=== PATIENT | female | born 1935 | race Caucasian/White ===

== ENCOUNTER 2019-10-04 08:39 | Observation (INO) | payer MEDICARE, SELFPAY ==
[2019-10-04] VITALS (15 sets, daily range): BP systolic 131–172; BP diastolic 49–65; PULSE 77–96; RESP 13–22; TEMP 36.1–37.1; O2SAT 98–100; BMI 26.2
--- NOTE | 2019-10-04 08:55 | ECG_ITS ---
Measurements Intervals [place] Rate: 87 P: 50 [place]: 161 QRS: -4 QRSD: 146 T: 128 QT: 369 QTc: 445 Interpretive Statements SINUS RHYTHM LEFT BUNDLE BRANCH BLOCK BASELINE ARTIFACT- III ABNORMAL ECG Electronically Signed On 10-04-2019 10:12:22 CDT by Maksim Covington D.O.
--- NOTE | 2019-10-04 08:56 | ED.RECABL ---
HPI - Recheck/Abnormal Lab/Rx General Chief Complaint: Recheck/Abnormal Lab/Rx Stated Complaint: Needs Blood Transfusion Time Seen by Provider: 10/04/19 08:47 Source: patient Mode of arrival: ambulatory Limitations: no limitations History of Present Illness HPI narrative: This patient is an 84 year old female with history of anemia and hypertension who presents for evaluation of low hemoglobin. Patient reports she had routine labs performed yesterday and she was called by her PCP this morning. She was told to come to ER for a low hemoglobin. On review of labs done yesterday her hemoglobin was 5.6 yesterday. She denies nausea, vomiting, melena, epistaxis, or blood in her stools She states many years ago she was told she was severely anemia. She is not sure if she takes iron supplements. She denies chest pain. She states she is short of breath for many years and it is because she is 84 years old. She also reports she has fatigue but it is also because she is 84 years old. Her hemoglobin was 9.1 in September 2018. complaint: abnormal lab Related Data Allergies Allergy/AdvReac Type Severity Reaction Status Date / Time No Known Allergies Allergy Unverified 10/03/19 10:30 Review of Systems Review of Systems: All systems reviewed & are unremarkable except as noted in HPI and below Constitutional: Constitutional: Reports fatigue ENT: Denies epistaxis Cardiovascular: Cardiovascular: Denies chest pain Respiratory: Respiratory: Reports dyspnea Gastrointestinal: Gastrointestinal: Denies abdominal pain, Denies nausea and Denies vomiting PMFSH Past Medical History Medical History Anemia Hypertension Surgical History Surgical History History of D&C History of eye surgery Family History Family History Father Hypertension Family history of lung cancer Mother Hypertension Family history of lung cancer Sibling Patient's sister is in good health Social History Social History Smoking packs per day: 0.5 Smoking cigarettes per day: 10.0 Years smoked: 20 Smoking pack-years: 10.00 Smoking status: Former smoker Tobacco type: cigarettes Second hand tobacco smoke exposure: No Smoking end date: 02/08/93 Alcohol intake: current Drinks per week: 7 Substance use: never Substance use type: prescription drug Gender identity (if verbalized by the patient): Female Spiritual care concerns: No Exam Const: General: no acute distress and alert Orientation/consciousness: patient oriented x3 Chest: Chest palpation & inspection: normal inspection of the chest Resp: Effort & Inspection: normal respiratory effort and no retractions Auscultation: clear to auscultation bilaterally Cardio: Rate: regular rate Rhythm: regular rhythm Heart sounds: Murmur heart sound present systolic at the right sternal border GI: GI Palp: Yes Soft to palpation and No Tenderness to palpation present (GI) Auscultation: normal bowel sounds Back/Spine/Pelvis: Back: no CVA tenderness Skin: General skin exam: pallor Neuro: General: patient oriented x3 and moves all extremities Course Consultations Consultation #1: I Discussed case with Dr. Bassett who accepts patient for evaluation of anemia. She is stable . Date: 10/04/19 Time: 10:43 Vital Signs Vital signs: Vital Signs Temperature 98.1 F 10/04/19 08:44 Pulse Rate 96 10/04/19 08:44 Respiratory Rate 17 10/04/19 08:44 Blood Pressure 172/62 H 10/04/19 08:44 Pulse Oximetry 100 10/04/19 08:44 Temperature 97.7 F 10/04/19 18:05 Pulse Rate 80 10/04/19 18:05 Respiratory Rate 16 10/04/19 18:05 Blood Pressure 133/52 L 10/04/19 18:05 Pulse Oximetry 99 10/04/19 18:05 MDM - Recheck/Abno
[2019-10-04 09:07] LABS: Basophils Absolute Auto 0.1 K/mm3 (0.0-0.1); Basophils Percent Auto 1.4 % (0.2-1.2); Eosinophils Absolute Auto 0.4 K/mm3 (0-0.3); Eosinophils Percent Auto 5.8 % (0-4.4); Hematocrit 22.7 % (37.0-47.0); Immature Granulocyte Absolute 0.02 K/mm3 (0.00-0.031); Immature Granulocyte Percent A 0.3 % (0-0.5); Lymphocytes Absolute Auto 2.26 K/mm3 (0.9-3.2); Mean Corpuscular HGB Conc 27.8 g/dl (32-36); Mean Corpuscular Hemoglobin 17.9 pg (26-34); Mean Corpuscular Volume 64.5 fl (80-100); Mean Platelet Volume 9.3 fl (7.4-10.4); Monocytes Absolute Auto 0.6 K/mm3 (0.1-0.6); Monocytes Percent Auto 8.2 % (2.6-8.5); Neutrophils Absolute Auto 3.7 K/mm3 (1.3-6.7); Neutrophils Percent Auto 52.3 % (45.5-73.1); Platelet Count Result 453 k/mm3 (150-375); Red Blood Count 3.52 M/mm3 (4.2-5.4); Red Cell Distribution Width 19.4 % (11.5-14.5); White Blood Count 7.1 K/mm3 (4.5-10.0)
[2019-10-04 09:16] LABS: Hemoglobin 6.3 g/dL (12.0-15.0)
[2019-10-04 09:18] LABS: Anisocytosis 1+ (NORMAL); Hypochromasia 2+ (NORMAL); Ovalocytes 1+ (NORMAL); Platelet Estimate Adequate (Adequate); Poikilocytosis 1+ (NORMAL); Target Cells 1+ (NORMAL)
[2019-10-04 09:20] LABS: Alanine Aminotransferase 14 U/L (4-35); Albumin Level 4.4 g/dL (3.5-5.1); Alkaline Phosphatase 57 U/L (38-126); Anion Gap 12 mmol/L (8-16); Aspartate Amino Transferase 27 U/L (14-36); Bilirubin,Total 0.1 mg/dL (0.2-1.3); Blood Urea Nitrogen 18 mg/dL (7-17); Calcium 9.4 mg/dL (8.4-10.2); Carbon Dioxide 23 mmol/L (22-30); Chloride 104 mmol/L (98-107); Estimated CRCL calculation 22 ml/min; Estimated Glomerular Filt Rate 33; Glucose 125 mg/dL (65-105); Potassium 4.2 mmol/L (3.4-5.0); Sodium 139 mmol/L (137-145)
[2019-10-04 09:21] LABS: Prothrombin Time 13.1 Seconds (11.1-14.7)
[2019-10-04 09:22] LABS: Partial Thromboplastin Time 26.9 SECONDS (22.3-36.8)
[2019-10-04 10:03] LABS: Iron 20 ug/dL (37-170)
[2019-10-04 10:11] LABS: Percent Iron Saturation 4 % (20-50)
[2019-10-04 10:26] LABS: Folic Acid 10.9 ng/mL (2.76->20)
[2019-10-04] MEDS: SODIUM CHLORIDE 0.9% IV 250 ML 30 ML IV CONT (11:36)
[2019-10-04] MEDS: TUBING, BLOOD PLUM PUMP TUBING 1 EACH XX (11:36)
--- NOTE | 2019-10-04 12:47 | PC.NURSE ---
This patient, Yasmin Powell, was admitted to 3 [facility] Room 305-01. Patient/family oriented to hospital policies and general routines including ID bracelet, bed and alarms, visiting hours, pain management, procedures, bathroom and other care routines, personal items, smoking policy, room service/diet, and visiting hours. Valuables list has been completed. Information on how to activate the Rapid Response Team has been discussed. Patient/Family are encouraged to report perceived risks to care and to ask questions if they do not understand what they are told or what they should do.
--- NOTE | 2019-10-04 17:15 | PM.IMHP ---
H&P: HPI History of Present Illness Date/Time: 10/04/19 17:15 Chief complaint: severe anemia Narrative: Yasmin Powell is a 84 year old female very pleasant lady, usually well and in good health went to see her PCP and had labs run which showed she was anemic hb at 6. Pt is crossmatched and transfused blood. etiology unknown ?iron studies or b12 deficiency. Pt denies any blood loss. pt does use Aspirin and has a history of CKD and iron deficiency anaemia. Pt wants to go home I am still awaiting her iron panel. and B12 levels. Review of Systems Review of Systems: ROS unobtainable: Yes other (pale and tired ) [facility] Past Medical History Medical History Anemia Hypertension Surgical History Surgical History History of D&C History of eye surgery Family History Family History Father Hypertension Family history of lung cancer Mother Hypertension Family history of lung cancer Sibling Patient's sister is in good health Social History Social History Smoking packs per day: 0.5 Smoking cigarettes per day: 10.0 Years smoked: 20 Smoking pack-years: 10.00 Smoking status: Former smoker Tobacco type: cigarettes Second hand tobacco smoke exposure: No Smoking end date: 02/08/93 Alcohol intake: current Drinks per week: 7 Substance use: never Substance use type: prescription drug Gender identity (if verbalized by the patient): Female Spiritual care concerns: No Meds Home Medications and Allergies Home Medications Medication Instructions Recorded Confirmed Type losartan 100 mg tablet 100 mg PO DAILY #90 tablet 08/07/19 10/04/19 Rx ferrous sulfate 325 mg PO DAILY #60 tablet 10/05/19 Rx vitamin B complex [B 1 tablet PO DAILY #60 tablet 10/05/19 Rx Complex-Vitamin B12] Allergies Allergy/AdvReac Type Severity Reaction Status Date / Time No Known Allergies Allergy Unverified 10/03/19 10:30 Vital Signs Vital Signs - 24 hr 10/04/19 08:44 10/04/19 10:15 10/04/19 11:33 Temperature 36.7 C 37.1 C Pulse Rate 96 82 84 Respiratory Rate 17 22 H 14 Blood Pressure 172/62 H 159/60 H 143/65 H Pulse Oximetry 100 99 100 10/04/19 11:35 10/04/19 11:49 10/04/19 13:15 Temperature 37.1 C 36.9 C 36.4 C L Pulse Rate 83 80 84 Respiratory Rate 13 19 16 Blood Pressure 143/65 H 154/65 H 149/56 H Pulse Oximetry 100 100 100 10/04/19 13:49 10/04/19 14:00 10/04/19 14:49 Temperature 36.1 C L 36.6 C 36.3 C L Pulse Rate 86 81 77 Respiratory Rate 16 18 16 Blood Pressure 135/51 L 149/60 H 131/49 L Pulse Oximetry 100 98 99 10/04/19 15:03 10/04/19 15:18 10/04/19 16:18 Temperature 36.3 C L 36.2 C L 36.6 C Pulse Rate 77 79 79 Respiratory Rate 16 16 16 Blood Pressure 131/49 L 138/50 L 141/50 H Pulse Oximetry 99 98 99 Exam Const: General: tired appearing and other (pale ) HENMT: Head: normocephalic Eyes: General: appearance normal, both eyes and all related structures Pupils: Equal, round and reactive pupils present Neck: Neck: supple Chest: Chest palpation & inspection: normal inspection of the chest Resp: Effort & Inspection: normal respiratory effort Auscultation: clear to auscultation bilaterally Cardio: Jugular venous distension: no JVD Rhythm: regular rhythm Heart sounds: S1 normal heart sound present and S2 normal heart sound present GI: Inspection: normal to inspection GI Palp: No abdominal tenderness, Yes Soft to palpation and No Tenderness to palpation present (GI) Auscultation: normal bowel sounds : General: Yes no CVA tenderness Back/Spine/Pelvis: Back: no CVA tenderness Skin: General skin exam: normal color and dry skin Neuro: Cranial nerves: Yes CN's II-XII intact bilaterally and Yes Equal, round and reactive pupils present
[2019-10-05 06:00] VITALS: BP 118/74; PULSE 72; RESP 16; TEMP 36.6; O2SAT 97
[2019-10-05 06:30] LABS: Basophils Absolute Auto 0.1 K/mm3 (0.0-0.1); Basophils Percent Auto 1.4 % (0.2-1.2); Eosinophils Absolute Auto 0.2 K/mm3 (0-0.3); Eosinophils Percent Auto 3.1 % (0-4.4); Hematocrit 29.4 % (37.0-47.0); Hemoglobin 8.9 g/dL (12.0-15.0); Immature Granulocyte Absolute 0.02 K/mm3 (0.00-0.031); Immature Granulocyte Percent A 0.3 % (0-0.5); Lymphocytes Absolute Auto 1.09 K/mm3 (0.9-3.2); Lymphocytes Percent Auto 16.9 % (18.3-44.2); Mean Corpuscular HGB Conc 30.3 g/dl (32-36); Mean Corpuscular Hemoglobin 21.8 pg (26-34); Mean Corpuscular Volume 71.9 fl (80-100); Monocytes Absolute Auto 0.6 K/mm3 (0.1-0.6); Monocytes Percent Auto 8.8 % (2.6-8.5); Neutrophils Absolute Auto 4.5 K/mm3 (1.3-6.7); Neutrophils Percent Auto 69.5 % (45.5-73.1); Platelet Count Result 311 k/mm3 (150-375); Red Blood Count 4.09 M/mm3 (4.2-5.4); Red Cell Distribution Width 25.3 % (11.5-14.5); White Blood Count 6.5 K/mm3 (4.5-10.0)
[2019-10-05 06:58] LABS: Alanine Aminotransferase 10 U/L (4-35); Albumin Level 3.7 g/dL (3.5-5.1); Alkaline Phosphatase 51 U/L (38-126); Anion Gap 7 mmol/L (8-16); Aspartate Amino Transferase 24 U/L (14-36); Bilirubin,Total 0.6 mg/dL (0.2-1.3); Blood Urea Nitrogen 16 mg/dL (7-17); Calcium 8.8 mg/dL (8.4-10.2); Carbon Dioxide 25 mmol/L (22-30); Chloride 108 mmol/L (98-107); Estimated CRCL calculation 27 ml/min; Estimated Glomerular Filt Rate 43; Glucose 98 mg/dL (65-105); Potassium 4.1 mmol/L (3.4-5.0); Sodium 140 mmol/L (137-145)
[2019-10-05] MEDS: LOSARTAN POTASSIUM 100 MG TABLET PO (08:44)
--- NOTE | 2019-10-06 15:48 | PM.DS ---
DS: Admitting Diagnosis Admitting Diagnosis Admitting Diagnosis: DATE OF DISCHARGE 10/05/2019 Severe anemia DS: Discharge Diagnosis Discharge Diagnosis (1) Anemia: Code(s): D64.9 - Anemia, unspecified Status: Acute Assessment and Plan: Pt transfused blood iron panel shows iron deficiency anaemia, ferrous sulphate and B12 given on discharge. Pt can follow will hematology if she wishes or her PCP. Pt was not able to provide a FOBT. Pt states she has had a colonoscopy roughly 40 years ago, which was NL. (2) Chronic kidney disease: Code(s): N18.9 - Chronic kidney disease, unspecified Status: Acute Assessment and Plan: Creat is 1.2 on admission which is pts baseline level. (3) Hypertension: Code(s): I10 - Essential (primary) hypertension Status: Acute Assessment and Plan: BP 133/52 stable, pt home medications were continued. DS: Summary Time Spent with Patient Time attestation: Total time spent providing and/or coordinating discharge services: 20 minutes on day of dischrage Exam Const: General: tired appearing and other (pale ) HENMT: Head: normocephalic Eyes: General: appearance normal, both eyes and all related structures Pupils: Equal, round and reactive pupils present Neck: Neck: supple Chest: Chest palpation & inspection: normal inspection of the chest Resp: Effort & Inspection: normal respiratory effort Auscultation: clear to auscultation bilaterally Cardio: Jugular venous distension: no JVD Rhythm: regular rhythm Heart sounds: S1 normal heart sound present and S2 normal heart sound present GI: Inspection: normal to inspection Auscultation: normal bowel sounds : General: Yes no CVA tenderness Back/Spine/Pelvis: Back: no CVA tenderness Skin: General skin exam: normal color and dry skin Neuro: Cranial nerves: Yes CN's II-XII intact bilaterally and Yes Equal, round and reactive pupils present Cognition (Neuro): normal cognition Speech: normal speech Motor exam (neuro): 5/5 motor strength present throughout Extrem: General: normal to inspection Psych: Appearance: grossly normal Mental Status: mental status grossly normal Discharge Plan Discharge Attending physician on discharge: Danuta Bassett Consulting providers: Erick Lakhani Discharging Clinician: Danuta Bassett Anticipated Discharge Date/Time: 10/05/19 11:02 Patient Disposition: Home, Self-Care Activity: as tolerated Diet: heart healthy Patient Instructions: Antibiotic Form Stand Alone Forms: General Discharge Information Follow-up/Referrals: Javier Lees MD [Primary Care Provider] - (in 2 -3 weeks time for folow up cbc ) Discharge Medications: New ferrous sulfate 325 mg (65 mg iron) tablet 325 mg PO DAILY Qty: 60 RF: 0 vitamin B complex [B Complex-Vitamin B12] Tablet 1 tablet PO DAILY Qty: 60 RF: 0 Continued losartan 100 mg tablet 100 mg PO DAILY Qty: 90 RF: 1 Date of admission: 10/04/19 10:44 Primary Care Provider: Javier Lees Admitting Provider: Danuta Bassett Discharge Date/Time: 10/05/19 11:35 Attending physician on admission: Dnauta Bassett Condition: Stable
== END 2019-10-05 11:35 | disposition home or self-care (01) ==
LOC: ANHED 09:35 → ANH3MEDSUR 11:26
PROVIDERS: Admitting Provider Family Medicine; Emergency Provider General Practice; PCP Family Medicine; Visit Provider Family Medicine
DX: D50.9 Iron deficiency anemia, unspecified (principal); N18.9 Chronic kidney disease, unspecified; Z87.891 Personal history of nicotine dependence; I12.9 Hypertensive chronic kidney disease with stage 1 through stage 4 chronic kidney disease, or unspecified chronic kidney disease
CPT/HCPCS: 36415; 36430; 80053; 82607; 82746; 83540; 83550; 85025; 85610; 85730; 86850; 86900; 86901; 86923; 93005; 99285; A9270; G0378; J7050; P9016

== ENCOUNTER 2021-06-30 10:54 | Outpatient (CLI) | payer MEDICARE, SELFPAY ==
[2021-06-30 11:33] LABS: Basophils Absolute Auto 0.1 K/mm3 (0.0-0.1); Basophils Percent Auto 1.3 % (0.2-1.2); Eosinophils Absolute Auto 0.2 K/mm3 (0-0.3); Eosinophils Percent Auto 2.6 % (0-4.4); Hematocrit 37.8 % (37.0-47.0); Hemoglobin 12.1 g/dL (12.0-15.0); Immature Granulocyte Absolute 0.03 K/mm3 (0.00-0.031); Immature Granulocyte Percent A 0.4 % (0-0.5); Lymphocytes Absolute Auto 0.97 K/mm3 (0.9-3.2); Lymphocytes Percent Auto 12.5 % (18.3-44.2); Mean Corpuscular Hemoglobin 30.5 pg (26-34); Mean Corpuscular Volume 95.2 fl (80-100); Monocytes Absolute Auto 0.4 K/mm3 (0.1-0.6); Monocytes Percent Auto 5.7 % (2.6-8.5); Neutrophils Percent Auto 77.5 % (45.5-73.1); Platelet Count Result 316 k/mm3 (150-375); Red Blood Count 3.97 M/mm3 (4.2-5.4); Red Cell Distribution Width 13.8 % (11.5-14.5); White Blood Count 7.8 K/mm3 (4.5-10.0)
[2021-06-30 12:01] LABS: Alanine Aminotransferase 17 U/L (6-35); Albumin Level 4.8 g/dL (3.5-5.1); Alkaline Phosphatase 70 U/L (38-126); Anion Gap 8 mmol/L (8-16); Aspartate Amino Transferase 41 U/L (14-36); Bilirubin,Total 0.5 mg/dL (0.2-1.3); Blood Urea Nitrogen 23 mg/dL (7-17); Calcium 9.3 mg/dL (8.4-10.2); Carbon Dioxide 28 mmol/L (22-30); Chloride 101 mmol/L (98-107); Estimated Glomerular Filt Rate 43; Glucose 97 mg/dL (65-110); Potassium 4.3 mmol/L (3.4-5.0); Sodium 137 mmol/L (137-145)
== END 2021-06-30 10:55 | disposition home or self-care (01) ==
PROVIDERS: PCP Family Medicine; Visit Provider Family Medicine
DX: I10 Essential (primary) hypertension (principal); D64.9 Anemia, unspecified; N18.30 Chronic kidney disease, stage 3 unspecified
CPT/HCPCS: 36415; 80053; 85025

== ENCOUNTER 2021-12-29 12:00 | Outpatient (CLI) | payer MEDICARE, SELFPAY ==
[2021-12-29 13:24] LABS: Hematocrit 36.8 % (37.0-47.0); Hemoglobin 11.9 g/dL (12.0-15.0); Mean Corpuscular HGB Conc 32.3 g/dl (32-36); Mean Corpuscular Hemoglobin 30.3 pg (26-34); Mean Corpuscular Volume 93.6 fl (80-100); Platelet Count Result 322 k/mm3 (150-375); Red Blood Count 3.93 M/mm3 (4.2-5.4); Red Cell Distribution Width 13.2 % (11.5-14.5); White Blood Count 11.7 K/mm3 (4.5-10.0)
[2021-12-29 13:35] LABS: Alanine Aminotransferase 17 U/L (6-35); Albumin Level 4.6 g/dL (3.5-5.1); Alkaline Phosphatase 77 U/L (38-126); Anion Gap 10 mmol/L (8-16); Aspartate Amino Transferase 32 U/L (14-36); Bilirubin,Total 0.5 mg/dL (0.2-1.3); Blood Urea Nitrogen 20 mg/dL (7-17); Calcium 9.4 mg/dL (8.4-10.2); Carbon Dioxide 26 mmol/L (22-30); Chloride 104 mmol/L (98-107); Cholesterol 242 mg/dL (0-200); Estimated Glomerular Filt Rate 47; Glucose 96 mg/dL (65-110); HDL Direct 90 mg/dL; Potassium 4.5 mmol/L (3.4-5.0); Sodium 140 mmol/L (137-145); Triglycerides 163 mg/dL (<150)
[2021-12-29 13:47] LABS: LDL Cholesterol Direct 116 mg/dL
[2021-12-29 14:43] LABS: Folic Acid > 20.0 ng/mL (2.76->20); Vitamin B12 > 1000.0 pg/mL (239-931)
[2021-12-29 15:09] LABS: Appearance Urine Clear (Clear); Bilirubin Urine Negative (Negative); Blood Urine Negative (Negative); Color Urine Yellow (Yellow); Glucose Urine UA Negative (Negative); Ketones Urine Negative (Negative); Leukocyte Esterase Ur 1+ LEU/UL (NEGATIVE); Nitrate Urine Negative (Negative); Protein Urine Negative (Negative); Urobilinogen Urine 0.2 mg/dL (<2.0)
[2021-12-29 15:16] LABS: Mucus Urine Rare /lpf; Squamous Epithelial Cell Urine Rare /hpf (Few); WBC Urine 21-30 /hpf (0-3)
[2021-12-29 15:17] LABS: Add Urine Microscopic? YES
== END 2021-12-29 12:01 | disposition home or self-care (01) ==
PROVIDERS: PCP Family Medicine; Visit Provider Family Medicine
DX: D50.9 Iron deficiency anemia, unspecified (principal); R53.83 Other fatigue; I12.9 Hypertensive chronic kidney disease with stage 1 through stage 4 chronic kidney disease, or unspecified chronic kidney disease; N18.30 Chronic kidney disease, stage 3 unspecified
CPT/HCPCS: 36415; 80053; 80061; 81001; 82607; 82746; 84443; 85027

== ENCOUNTER 2022-07-30 15:34 | Emergency (ER) | payer MEDICARE, SELFPAY ==
[2022-07-30] VITALS (31 sets, daily range): BP systolic 89–159; BP diastolic 49–113; PULSE 74–110; RESP 12–27; TEMP 36–37.1; O2SAT 94–100
--- NOTE | ~2022-07-30 | CT_ITS ---
EXAMINATION: CT abdomen pelvis w con DATE: 07/30/2022 18:38 INDICATION: rectal bleeding, syncope, r/o divertic bleed TECHNIQUE: Computed tomography (CT) of the abdomen and pelvis was performed with 100 mL Omnipaque-350 intravenous contrast. Automated exposure control and iterative reconstruction technique were employe d. The dose-length product was 317.07 mGy-cm. COMPARISON: None. FINDINGS: Lower thorax: Mild dependent scar/atelectasis. Small hiatal hernia. Coronary artery calcification. Liver: Diffuse fatty infiltration. Biliary/Gallbladder: Gallbladder is normal. No bile duct dilation. Pancreas: No mass or duct dilation. Spleen: Subcentimeter hypodensity, likely cyst or hemangioma Adrenals:No mass. Kidneys: Multiple simple left renal cysts. Multiple left subcentimeter hypodensities, too small to ch aracterize but also most likely represent cysts. Small simple right upper pole cyst. No suspicious ma ss, obstructing desiccation, or hydronephrosis. GI tract: Mild distal esophageal and gastric wall edema. No small or large bowel dilation. Appendix n ot visualized. Diverticulosis without diverticulitis. Mesentery/Peritoneum: No ascites, mass, or free air. Retroperitoneum: No mass. Atherosclerotic abdominal aortic and/or arterial calcifications. Pelvis: Pelvic organs are within normal limits. Soft Tissues: Soft tissues and body wall unremarkable. Bones: No acute osseous finding. IMPRESSION: Mild esophagitis/gastritis. No other acute abdominopelvic process detected. Reviewed, dictated and finalized at location K.
--- NOTE | ~2022-07-30 | XR_ITS ---
EXAMINATION: XR chest port-a-cath/central Exam Date/Time: 07/30/2022 20:55 CDT HISTORY: CENTRAL LINE PLACEMENT Comparison: None. RESULT: Lines, tubes, and devices: Right IJ central venous line terminating in the distal SVC. Lungs and pleura: Clear. Right lower lobe calcified granuloma. Cardiomediastinal silhouette: Stable. Other: No acute osseous or upper abdominal finding. IMPRESSION: No acute cardiopulmonary process. Right IJ central venous line, in good position. Reviewed, dictated and finalized at location K. IMPRESSION: No acute cardiopulmonary process. Right IJ central venous line, in good positio n.
[2022-07-30 16:30] LABS: Basophils Absolute Auto 0.1 K/mm3 (0.0-0.1); Basophils Percent Auto 0.9 % (0.2-1.2); Eosinophils Absolute Auto 0.1 K/mm3 (0-0.3); Eosinophils Percent Auto 1.6 % (0-4.4); Hematocrit 31.6 % (37.0-47.0); Hemoglobin 9.7 g/dL (12.0-15.0); Immature Granulocyte Absolute 0.03 K/mm3 (0.00-0.031); Immature Granulocyte Percent A 0.3 % (0-0.5); Lymphocytes Absolute Auto 0.74 K/mm3 (0.9-3.2); Lymphocytes Percent Auto 8.5 % (18.3-44.2); Mean Corpuscular HGB Conc 30.7 g/dl (32-36); Mean Corpuscular Hemoglobin 28.7 pg (26-34); Mean Corpuscular Volume 93.5 fl (80-100); Mean Platelet Volume 10.1 fl (7.4-10.4); Monocytes Absolute Auto 0.5 K/mm3 (0.1-0.6); Monocytes Percent Auto 5.7 % (2.6-8.5); Neutrophils Absolute Auto 7.2 K/mm3 (1.3-6.7); Platelet Count Result 239 k/mm3 (150-375); Red Blood Count 3.38 M/mm3 (4.2-5.4); Red Cell Distribution Width 14.2 % (11.5-14.5); White Blood Count 8.7 K/mm3 (4.5-10.0)
[2022-07-30 16:34] LABS: Alanine Aminotransferase 16 U/L (6-35); Albumin Level 3.8 g/dL (3.5-5.1); Alkaline Phosphatase 55 U/L (38-126); Anion Gap 7 mmol/L (8-16); Aspartate Amino Transferase 32 U/L (14-36); Bilirubin,Total 0.4 mg/dL (0.2-1.3); Blood Urea Nitrogen 20 mg/dL (7-17); Calcium 8.4 mg/dL (8.4-10.2); Carbon Dioxide 25 mmol/L (22-30); Chloride 105 mmol/L (98-107); Estimated CRCL calculation 23 ml/min; Estimated Glomerular Filt Rate 43; Glucose 122 mg/dL (65-110); Prothrombin Time 13.8 Seconds (11.1-14.7); Sodium 137 mmol/L (137-145)
--- NOTE | 2022-07-30 16:59 | ECG_ITS ---
Measurements Intervals [place] Rate: 71 P: 53 [place]: 161 QRS: 2 QRSD: 128 T: 125 QT: 408 QTc: 445 Interpretive Statements SINUS RHYTHM LEFT BUNDLE BRANCH BLOCK [120+ ms QRS DURATION, 80+ ms Q/S IN V1/V2, 85+ ms R IN I/aVL/V5/V6] COMPARED TO ECG 10/04/2019 08:54:21 NO SIGNIFICANT CHANGES Electronically Signed On 07-30-2022 18:20:37 CDT by Belen Faust M.D.
--- NOTE | 2022-07-30 18:02 | ED.GIBLEED ---
HPI - GI Bleed General Chief complaint: GI Bleed <CHAPARRO Carranza Last Filed: 07/31/22 03:00> Stated complaint: gi bleed <CHAPARRO Carranza Last Filed: 07/31/22 03:00> Time Seen by Provider: 07/30/22 16:59 <CHAPARRO Carranza Last Filed: 07/31/22 03:00> Source: patient and family <CHAPARRO Carranza Last Filed: 07/31/22 03:00> Mode of arrival: EMS <CHAPARRO Carranza Last Filed: 07/31/22 03:00> Limitations: no limitations <CHAPARRO Carranza Last Filed: 07/31/22 03:00> History of Present Illness HPI Narrative: Patient is an 87-year-old female who presents to the ED via EMS with report of syncope and rectal bleeding. Daughter at bedside assisted in providing information. Daughter reports the patient had gotten back from a macular degeneration eye appointment this morning, they ate lunch and patient felt like she needed to have a bowel movement. She called her daughter into the bathroom at which point she noticed the patient had bright red blood in the toilet. There was no stool involved. Patient began feeling faint and lightheaded, daughter lowered her to the ground where she then had a syncopal episode. She regained consciousness quickly, but continued to bleed from her rectum. Patient does not remember feeling faint or passing out. She states the next thing she remembered after using the bathroom was the ambulance being at her house. Patient feels lightheaded currently, but otherwise feels fine. Denies any chest pain, shortness of breath, vision changes, headache, abdominal pain, nausea, vomiting, focal weakness, numbness. Patient is not on any blood thinners. Daughter reports patient has history of bleeding external hemorrhoids throughout her life, though she has not had any issues with this recently. Known hx of anemia, on iron supplements. <CHAPARRO Carranza Last Filed: 07/31/22 03:00> Related Data Allergies/Adverse reactions: Allergies Allergy/AdvReac Type Severity Reaction Status Date / Time No Known Allergies Allergy Verified 12/29/21 10:56 <Holly Lorenzana PA-C - Last Filed: 07/31/22 03:00> Review of Systems Review of Systems: CONSTITUTIONAL: Denies fever, chills, or sweats. EYES: Denies visual changes. CARDIOVASCULAR: Denies chest pain. RESPIRATORY: Denies dyspnea. GASTROINTESTINAL: See HPI. GENITOURINARY: Denies dysuria or hematuria. MUSCULOSKELETAL: Denies back pain, joint pain, or myalgia. NEUROLOGIC: See HPI. <Holly Lorenzana PA-C - Last Filed: 07/31/22 03:00> All systems reviewed & are unremarkable except as noted in HPI and below <Holly Lorenzana PA-C - Last Filed: 07/31/22 03:00> [facility] Past Medical History Medical History: Medical History Anemia Hypertension LBBB (left bundle branch block) <Holly Lorenzana PA-C - Last Filed: 07/31/22 03:00> Surgical History Surgical History: Surgical History History of D&C History of eye surgery <Holly Lorenzana PA-C - Last Filed: 07/31/22 03:00> Family History Family History: Family History Father Hypertension Family history of lung cancer Mother Hypertension Family history of lung cancer Sibling Patient's sister is in good health <Holly Lorenzaan PA-C - Last Filed: 07/31/22 03:00> Social History Social History: Social History Smoking packs per day: 0.5 Smoking cigarettes per day: 10.0 Years smoked: 20 Smoking pack-years: 10.00 Smoking status: Never smoker Tobacco type: cigarettes Second hand tobacco smoke exposure: No Smoking end date: 02/08/93 Alcohol intake: current Drinks per week: 7 Substance use: never
[2022-07-30 18:12] LABS: Troponin I < 0.012 ng/mL (0.000-0.034)
[2022-07-30] MEDS: SODIUM CHLORIDE 0.9% IV 1,000 ML 999 ML IV CONT (18:56)
--- NOTE | 2022-07-30 19:17 | PC.NURSE ---
Patient report given to PATO Retana. All questions answered and care of patient transferred.
--- NOTE | 2022-07-30 20:22 | PM.IMHP ---
H&P: HPI History of Present Illness Date/Time: 07/30/22 20:22 Chief Complaint: lower gi bleed a syncope Narrative: Patient is an 87 female with pmhx of htn, ckd stage 3, anemia and macular degeneration who was brought in after a syncopal episode when she had bright red blood per rectum earlier today. Patient was just seen at the eye clinic and had an eye procedure done. she was with her daughter when she went to the bathroom and daughter saw bright red blood on the toilet. patient was helped out of the toilet and had a syncopal episode. she could not recall events surrounding her episode until she was int he ambulance. according to daughter she has had history of internal hemorrhoids int he past, and her last transfusion was over 4 years ago. no history of diverticular bleed. in the er patient had another episode of massive lower gi bleed with evacuation of basically just liquid blood. er physician is going to place a central line, and 2 units prbc have been ordered for transfusion. Gi doctor was consulted from er, and recommended transfer to higher level facility for Interventional radiology intervention. Review of Systems Review of Systems: no fever or weight loss no vision changes, no eye discharge no throat pain, no hoarseness, no lymphadenopathy no chest pain, no palpitations no coughing, no wheezing some vague abdominal pain, positive diarrhea, no nausea, no vomiting no dysuria, no vaginal discharge no leg swelling, no edema no suicidal or homicidal ideation [facility] Past Medical History Medical History Anemia Hypertension LBBB (left bundle branch block) Surgical History Surgical History History of D&C History of eye surgery Family History Family History Father Hypertension Family history of lung cancer Mother Hypertension Family history of lung cancer Sibling Patient's sister is in good health Social History Social History Smoking packs per day: 0.5 Smoking cigarettes per day: 10.0 Years smoked: 20 Smoking pack-years: 10.00 Smoking status: Never smoker Tobacco type: cigarettes Second hand tobacco smoke exposure: No Smoking end date: 02/08/93 Alcohol intake: current Drinks per week: 7 Substance use: never Substance use type: prescription drug Living arrangements: with family Occupation/Education: retired Gender identity (if verbalized by the patient): Female Spiritual care concerns: No Meds Home Medications and Allergies Home Medications Medication Instructions Recorded Confirmed Type ferrous sulfate 325 mg (65 mg 325 mg PO DAILY #60 tabs 10/05/19 12/29/21 Rx iron) tablet vitamin B complex (B 1 tablet PO DAILY #60 tabs 10/05/19 12/29/21 Rx Complex-Vitamin B12 tablet) losartan 100 mg tablet 100 mg PO DAILY #90 tabs 06/30/21 12/29/21 Rx Allergies Allergy/AdvReac Type Severity Reaction Status Date / Time No Known Allergies Allergy Verified 12/29/21 10:56 Vital Signs Vital Signs - 24 hr 07/30/22 15:42 07/30/22 15:40 07/30/22 15:45 Temperature 98.7 F Pulse Rate 82 88 87 Respiratory Rate 14 18 12 Blood Pressure 147/68 H 147/68 H Pulse Oximetry 99 98 99 Oxygen Delivery Room Air 07/30/22 15:46 07/30/22 16:00 07/30/22 16:01 Temperature Pulse Rate 85 79 74 Respiratory Rate 12 16 Blood Pressure 135/59 L Pulse Oximetry 99 100 99 Oxygen Delivery 07/30/22 16:28 07/30/22 16:59 07/30/22 17:00 Temperature Pulse Rate 91 79 76 Respiratory Rate 14 13 13 Blood Pressure Pulse Oximetry 96 96 Oxygen Delivery 07/30/22 17:01 07/30/22 17:16 07/30/22 18:10 Temperature Pulse Rate 80 83 81 Respiratory Rate 15 12 16 Blood Pressure 120/55 L Pulse Oximetry 97 97 95 Oxygen Deliver
--- NOTE | 2022-07-30 21:20 | PC.NURSE ---
Pt requested to go to the bathroom and was alert and oriented when i walked in to the room. I double checked multiple times to make sure Pt was comfortable walking. Daughter said she can be unsteady so I suggested a bedpan. Pt refused bedpan and wanted to go the the bathroom. I suggested instead of walking to take a wheelchair to the bathroom, pt agreed. Once in the wheelchair pt started to feel she was going to faint. After pt was in wheelchair daughter told the nurse that she told the pt she needed a bedpan but did not say anything to me before moving her to wheelchair. I alerted a nurse and we got her to a bedside commode.
[2022-07-30] MEDS: TUBING, BLOOD SET 2 EACH XX (23:30)
== END 2022-07-30 23:33 | disposition short-term general hospital (02) ==
PROVIDERS: Emergency Medicine; Emergency Provider Physician Assistant; PCP Family Medicine
DX: K92.2 Gastrointestinal hemorrhage, unspecified (principal); D64.9 Anemia, unspecified; K57.90 Diverticulosis of intestine, part unspecified, without perforation or abscess without bleeding; R55 Syncope and collapse; I12.9 Hypertensive chronic kidney disease with stage 1 through stage 4 chronic kidney disease, or unspecified chronic kidney disease; N18.30 Chronic kidney disease, stage 3 unspecified; H35.30 Unspecified macular degeneration; Z87.891 Personal history of nicotine dependence; I44.7 Left bundle-branch block, unspecified; K20.90 Esophagitis, unspecified without bleeding; K29.70 Gastritis, unspecified, without bleeding
CPT/HCPCS: 36415; 36430; 36556; 74177; 80053; 84484; 85025; 85610; 85730; 86850; 86900; 86901; 86923; 93005; 96360; 96361; 99285; C1751; J7030; P9016; Q9967